=== PATIENT | female | born 1950 | race Caucasian/White ===

== ENCOUNTER 2017-10-08 10:43 | Inpatient (IN) | payer MEDICARE ==
[2017-10-08] VITALS (8 sets, daily range): BP systolic 98–114; BP diastolic 34–65
[~2017-10-08] VITALS: Ht 152.4 cm; Wt 71.3 kg
[2017-10-08] MEDS ORDERED: normal saline 1000ML IV soln IVB ONE ×2 (11:15)
[2017-10-08] MEDS ORDERED: ondansetron/PF 4mg/2ml inj IV ONE (11:15)
[2017-10-08] MEDS ORDERED: morphine 2 MG/ML inj. syringe IV ONE (11:15)
[2017-10-08] MEDS: morphine 5 MG/ML injection IV PRN ×3 (11:25→19:50)
[2017-10-08] MEDS ORDERED: iohexol 300mg/ml 100ml inj. ONE (11:30)
[2017-10-08 11:37] LABS: BASOPHILS % (AUTO) 0.4 % (0-1); EOSINOPHILS # (AUTO) 0.1 X10'3 (0-0.9); EOSINOPHILS % (AUTO) 1.8 % (0-6); HEMATOCRIT 38.1 % (35.0-45.0); HEMOGLOBIN 12.8 g/dl (12.0-16.0); LYMPHOCYTES # (AUTO) 1.2 X10'3 (1.1-4.8); LYMPHOCYTES % (AUTO) 20.7 % (21-51); MEAN CORPUSCULAR HEMOGLOBIN 31.8 PG (27.0-31.0); MEAN CORPUSCULAR HGB CONC 33.6 % (33.0-36.5); MEAN CORPUSCULAR VOLUME 94.7 FL (78-98); MEAN PLATELET VOLUME 6.5 FL (7.4-10.4); MONOCYTES # (AUTO) 0.3 X10'3 (0-0.9); MONOCYTES % (AUTO) 5.6 % (2-12); NEUTROPHILS # (AUTO) 4.3 X10'3 (1.8-7.7); NEUTROPHILS % (AUTO) 71.5 % (42-75); PLATELET COUNT 256 X10'3 (140-440); RED BLOOD COUNT 4.03 X10'6 (4.20-5.60); RED CELL DISTRIBUTION WIDTH 14.2 % (11.5-14.5)
[2017-10-08 11:45] LABS: PARTIAL THROMBOPLASTIN TIME 22 SECONDS (22-32); PROTHROMBIN TIME 10.5 SECONDS (9.0-12.0)
[2017-10-08] MEDS ORDERED: morphine 5 MG/ML injection IV ONE ×2 (11:55→13:25)
[2017-10-08 11:56] LABS: ALANINE AMINOTRANSFERASE 81 U/L (12-78); ALBUMIN 3.7 G/DL (3.4-5.0); ALKALINE PHOSPHATASE 58 IU/L (46-116); ANION GAP 6 (8-16); ASPARTATE AMINO TRANSFERASE 99 U/L (10-37); BILIRUBIN,TOTAL 0.4 MG/DL (0.1-1.0); BLOOD UREA NITROGEN 21 MG/DL (7-18); BUN/CREATININE RATIO 26.6 (6.6-38.0); CALCIUM 8.9 MG/DL (8.5-10.1); CHLORIDE 106 MMOL/L (99-107); CREATINE KINASE 159 U/L (26-192); CREATININE 0.79 MG/DL (0.40-0.90); GLUCOSE 136 MG/DL (70-104); POTASSIUM 4.1 MMOL/L (3.5-5.1); SODIUM 141 MMOL/L (135-145); TOTAL CARBON DIOXIDE 28.8 MMOL/L (24-32); TOTAL PROTEIN 7.4 G/DL (6.4-8.2); eGFR 72 ML/MIN
[2017-10-08 13:19] LABS: CLARITY,URINE SLIGHTLY CLOUDY (Clear); COLOR,URINE YELLOW (Yellow); GLUCOSE, URINE NEGATIVE (Neg); KETONES,URINE NEGATIVE (Neg); LEUKOCYTE ESTERASE ,URINE NEGATIVE (Neg); NITRITES, URINE NEGATIVE (Neg); OCCULT BLOOD,URINE MODERATE (Neg); PH,URINE 5.5 (4.8-8.0); PROTEIN,URINE NEGATIVE (Neg); UROBILINOGEN,URINE 0.2 E.U/dL (0.2-1.0)
[2017-10-08 13:32] LABS: UA COLLECTION TYPE STRAIGHT CATH
[2017-10-08 13:39] LABS: BACTERIA,URINE NONE SEEN /HPF (Neg); MUCUS STRANDS FEW /LPF (Neg); SQUAMOUS EPITHELIAL CELL,UR FEW /LPF (FEW); WBC,URINE 0-4 /HPF (0-4)
[2017-10-08 13:40] LABS: TRANSITIONAL EPI CELLS,URINE FEW /HPF
[2017-10-08] MEDS ORDERED: midazolam 2 mg/2 ml injection ONE (14:58)
[2017-10-08] MEDS ORDERED: fentaNYL/PF 50MCG/1 ML 2ML syringe ONE (14:58)
[2017-10-08] MEDS ORDERED: HYDROmorphone 1 mg/ml syringe IV PRN ×2 (15:20)
[2017-10-08] MEDS ORDERED: acetaminophen 325mg tablet PO PRN (15:20)
[2017-10-08] MEDS ORDERED: magnesium 2GM in 50ml NS 50 ML IV PRN (15:20)
[2017-10-08] MEDS ORDERED: potassium Cl 40MEQ/NS 500ml 500 ML IV PRN ×2 (15:20)
[2017-10-08] MEDS ORDERED: magnesium hydroxide 30ml (MOM) UD suspension PO PRN (15:20)
[2017-10-08] MEDS ORDERED: magnesium 4gm in 100ml NS 100 ML IV PRN (15:20)
[2017-10-08] MEDS ORDERED: potassium Cl 20 mEq SR tablet PO PRN ×2 (15:20)
[2017-10-08] MEDS ORDERED: magnesium Cl slow-release 64mg tablet PO PRN (15:20)
[2017-10-08] MEDS ORDERED: LIDOcaine 1%/PF (10mg/ml) 5ml vial SQ ONE (16:30)
[2017-10-08] MEDS ORDERED: fentaNYL/PF 50MCG/1 ML 2ML syringe IV PRN (16:30)
[2017-10-08] MEDS ORDERED: HYDROmorphone inj. 0.5 MG/0.5 ML DISP.SYRIN IV PRN ×2 (18:18)
[2017-10-08] MEDS ORDERED: NO HOME MEDS (18:21)
[2017-10-08] MEDS: normal saline 1000ml 1,000 ML IV SCH (19:55)
[2017-10-08] MEDS ORDERED: temazepam 15mg capsule PO PRN (21:00)
[2017-10-09] MEDS: normal saline 1000ml 1,000 ML IV SCH ×3 (04:39→20:05)
[2017-10-09] MEDS: HYDROcodone/acetaminophen 5mg/325mg tablet PO PRN (05:34)
[2017-10-09 06:00] VITALS: BP 127/49
[2017-10-09 06:01] LABS: BASOPHILS % (AUTO) 0.3 % (0-1); EOSINOPHILS % (AUTO) 0.6 % (0-6); HEMATOCRIT 34.7 % (35.0-45.0); HEMOGLOBIN 11.8 g/dl (12.0-16.0); LYMPHOCYTES % (AUTO) 15.2 % (21-51); MEAN CORPUSCULAR HEMOGLOBIN 32.3 PG (27.0-31.0); MEAN CORPUSCULAR HGB CONC 33.9 % (33.0-36.5); MEAN CORPUSCULAR VOLUME 95.2 FL (78-98); MEAN PLATELET VOLUME 6.3 FL (7.4-10.4); MONOCYTES # (AUTO) 0.7 X10'3 (0-0.9); MONOCYTES % (AUTO) 10.3 % (2-12); NEUTROPHILS # (AUTO) 4.9 X10'3 (1.8-7.7); NEUTROPHILS % (AUTO) 73.6 % (42-75); PLATELET COUNT 230 X10'3 (140-440); RED BLOOD COUNT 3.64 X10'6 (4.20-5.60); RED CELL DISTRIBUTION WIDTH 14.4 % (11.5-14.5); WHITE BLOOD COUNT 6.7 X10'3 (4.5-11.0)
[2017-10-09 06:15] LABS: ALBUMIN 3.2 G/DL (3.4-5.0); ANION GAP 6 (8-16); BLOOD UREA NITROGEN 16 MG/DL (7-18); BUN/CREATININE RATIO 17.8 (6.6-38.0); CALCIUM 8.4 MG/DL (8.5-10.1); CHLORIDE 105 MMOL/L (99-107); GLUCOSE 121 MG/DL (70-104); POTASSIUM 4.5 MMOL/L (3.5-5.1); SODIUM 140 MMOL/L (135-145); TOTAL CARBON DIOXIDE 29.4 MMOL/L (24-32); eGFR 62 ML/MIN
[2017-10-09] MEDS: K and/or MAG REPLACEMENT MC SCH (07:30)
[2017-10-09] MEDS: mag hydrox/Alum hydrox/simeth 30ml oral suspension PO PRN (09:05)
[2017-10-09 10:00] VITALS: BP 100/47
[2017-10-09] MEDS: HYDROcodone/acetaminophen 10/325mg tab PO PRN ×2 (12:03→16:42)
[2017-10-09] MEDS: morphine 5 MG/ML injection IV PRN (14:50)
[2017-10-09 19:00] VITALS: BP 125/53
[2017-10-09] MEDS ORDERED: morphine 4 MG/ML inj SYRINge IV PRN (19:45)
[2017-10-09 22:00] VITALS: BP 108/47
[2017-10-10] MEDS: HYDROcodone/acetaminophen 10/325mg tab PO PRN ×6 (00:21→23:41)
[2017-10-10 05:49] LABS: BASOPHILS % (AUTO) 0.4 % (0-1); EOSINOPHILS # (AUTO) 0.1 X10'3 (0-0.9); EOSINOPHILS % (AUTO) 2.7 % (0-6); HEMATOCRIT 30.6 % (35.0-45.0); HEMOGLOBIN 10.5 g/dl (12.0-16.0); LYMPHOCYTES # (AUTO) 1.2 X10'3 (1.1-4.8); LYMPHOCYTES % (AUTO) 25.1 % (21-51); MEAN CORPUSCULAR HEMOGLOBIN 32.3 PG (27.0-31.0); MEAN CORPUSCULAR HGB CONC 34.2 % (33.0-36.5); MEAN CORPUSCULAR VOLUME 94.4 FL (78-98); MEAN PLATELET VOLUME 6.5 FL (7.4-10.4); MONOCYTES # (AUTO) 0.6 X10'3 (0-0.9); MONOCYTES % (AUTO) 11.9 % (2-12); NEUTROPHILS % (AUTO) 59.9 % (42-75); PLATELET COUNT 203 X10'3 (140-440); RED BLOOD COUNT 3.24 X10'6 (4.20-5.60); RED CELL DISTRIBUTION WIDTH 14.6 % (11.5-14.5)
[2017-10-10 06:00] VITALS: BP 125/54
[2017-10-10 06:09] LABS: ALBUMIN 2.9 G/DL (3.4-5.0); ANION GAP 5 (8-16); BLOOD UREA NITROGEN 11 MG/DL (7-18); BUN/CREATININE RATIO 16.9 (6.6-38.0); CALCIUM 8.2 MG/DL (8.5-10.1); CHLORIDE 109 MMOL/L (99-107); CREATININE 0.65 MG/DL (0.40-0.90); GLUCOSE 108 MG/DL (70-104); MAGNESIUM 2.1 MG/DL (1.5-2.4); SODIUM 143 MMOL/L (135-145); TOTAL CARBON DIOXIDE 28.8 MMOL/L (24-32); eGFR > 90 ML/MIN
[2017-10-10] MEDS: K and/or MAG REPLACEMENT MC SCH (08:00)
[2017-10-10] MEDS: ondansetron/PF 4mg/2ml inj IV PRN ×2 (08:23→19:40)
[2017-10-10 10:00] VITALS: BP 125/53
[2017-10-10] MEDS: normal saline 1000ml 1,000 ML IV SCH ×2 (10:44→19:50)
[2017-10-10] MEDS ORDERED: bisacodyl 10mg suppository rectal RC PRN (16:25)
[2017-10-10 18:20] VITALS: BP 137/72
[2017-10-10 22:00] VITALS: BP 125/55
[2017-10-11] MEDS: HYDROcodone/acetaminophen 10/325mg tab PO PRN ×4 (03:58→15:50)
[2017-10-11 05:00] VITALS: BP 122/56
[2017-10-11 05:46] LABS: BASOPHILS % (AUTO) 0.2 % (0-1); EOSINOPHILS # (AUTO) 0.1 X10'3 (0-0.9); EOSINOPHILS % (AUTO) 1.2 % (0-6); HEMATOCRIT 32.4 % (35.0-45.0); HEMOGLOBIN 10.9 g/dl (12.0-16.0); LYMPHOCYTES # (AUTO) 1.1 X10'3 (1.1-4.8); LYMPHOCYTES % (AUTO) 14.5 % (21-51); MEAN CORPUSCULAR HEMOGLOBIN 32.4 PG (27.0-31.0); MEAN CORPUSCULAR HGB CONC 33.7 % (33.0-36.5); MEAN CORPUSCULAR VOLUME 96.3 FL (78-98); MEAN PLATELET VOLUME 6.8 FL (7.4-10.4); MONOCYTES # (AUTO) 0.7 X10'3 (0-0.9); MONOCYTES % (AUTO) 9.1 % (2-12); NEUTROPHILS # (AUTO) 5.6 X10'3 (1.8-7.7); PLATELET COUNT 220 X10'3 (140-440); RED BLOOD COUNT 3.36 X10'6 (4.20-5.60); RED CELL DISTRIBUTION WIDTH 14.3 % (11.5-14.5); WHITE BLOOD COUNT 7.5 X10'3 (4.5-11.0)
[2017-10-11 06:16] LABS: ALBUMIN 3.1 G/DL (3.4-5.0); ANION GAP 8 (8-16); BLOOD UREA NITROGEN 10 MG/DL (7-18); BUN/CREATININE RATIO 13.7 (6.6-38.0); CALCIUM 7.8 MG/DL (8.5-10.1); CHLORIDE 107 MMOL/L (99-107); CREATININE 0.73 MG/DL (0.40-0.90); GLUCOSE 107 MG/DL (70-104); POTASSIUM 3.6 MMOL/L (3.5-5.1); SODIUM 143 MMOL/L (135-145); TOTAL CARBON DIOXIDE 28.1 MMOL/L (24-32); eGFR 79 ML/MIN
[2017-10-11] MEDS: K and/or MAG REPLACEMENT MC SCH (08:00)
[2017-10-11 10:00] VITALS: BP 120/55
[2017-10-11] MEDS: mag hydrox/Alum hydrox/simeth 30ml oral suspension PO PRN (12:02)
[2017-10-11] MEDS: HYDROcodone/acetaminophen 5mg/325mg tablet PO PRN (20:14)
[2017-10-11 22:00] VITALS: BP 107/50
[2017-10-11] MEDS: normal saline 1000ml 1,000 ML IV SCH (23:19)
[2017-10-12] MEDS: HYDROcodone/acetaminophen 10/325mg tab PO PRN ×4 (02:56→15:07)
[2017-10-12 05:00] VITALS: BP 108/40
[2017-10-12 06:01] LABS: BASOPHILS % (AUTO) 0.4 % (0-1); EOSINOPHILS # (AUTO) 0.1 X10'3 (0-0.9); EOSINOPHILS % (AUTO) 2.4 % (0-6); HEMATOCRIT 30.4 % (35.0-45.0); HEMOGLOBIN 10.2 g/dl (12.0-16.0); LYMPHOCYTES # (AUTO) 1.4 X10'3 (1.1-4.8); LYMPHOCYTES % (AUTO) 26.6 % (21-51); MEAN CORPUSCULAR HGB CONC 33.5 % (33.0-36.5); MEAN CORPUSCULAR VOLUME 95.4 FL (78-98); MEAN PLATELET VOLUME 6.4 FL (7.4-10.4); MONOCYTES # (AUTO) 0.6 X10'3 (0-0.9); MONOCYTES % (AUTO) 12.6 % (2-12); PLATELET COUNT 228 X10'3 (140-440); RED BLOOD COUNT 3.18 X10'6 (4.20-5.60); RED CELL DISTRIBUTION WIDTH 14.2 % (11.5-14.5); WHITE BLOOD COUNT 5.1 X10'3 (4.5-11.0)
[2017-10-12 06:20] LABS: ALBUMIN 2.7 G/DL (3.4-5.0); ANION GAP 8 (8-16); BLOOD UREA NITROGEN 11 MG/DL (7-18); BUN/CREATININE RATIO 16.7 (6.6-38.0); CALCIUM 8.4 MG/DL (8.5-10.1); CHLORIDE 107 MMOL/L (99-107); CREATININE 0.66 MG/DL (0.40-0.90); GLUCOSE 101 MG/DL (70-104); MAGNESIUM 2.1 MG/DL (1.5-2.4); POTASSIUM 3.5 MMOL/L (3.5-5.1); SODIUM 144 MMOL/L (135-145); TOTAL CARBON DIOXIDE 29.3 MMOL/L (24-32); eGFR 89 ML/MIN
[2017-10-12] MEDS: K and/or MAG REPLACEMENT MC SCH (07:15)
[2017-10-12 10:00] VITALS: BP 122/36
[2017-10-12] MEDS: normal saline 1000ml 1,000 ML IV SCH (12:39)
[2017-10-12 18:00] VITALS: BP 105/48
[2017-10-12] MEDS ORDERED: MAGN400O6 PO (18:17)
[2017-10-12] MEDS: HYDROcodone/acetaminophen 5mg/325mg tablet PO PRN (18:39)
== END 2017-10-12 19:00 | disposition home or self-care (01) | DRG 200 ==
LOC: ER 10:43 → ED HOLD 15:19 → ORTHO 4S 17:35
PROVIDERS: ADMIT Internal Medicine; ATTEND Emergency Medicine
PROC: 0W9930Z Drainage of Right Pleural Cavity with Drainage Device, Percutaneous Approach (ICD-10-PCS; principal; 2017-10-08)
PROC: BW251ZZ Computerized Tomography (CT Scan) of Chest, Abdomen and Pelvis using Low Osmolar Contrast (ICD-10-PCS; 2017-10-08)
DX: S27.0XXA Traumatic pneumothorax, initial encounter (principal); S22.41XA Multiple fractures of ribs, right side, initial encounter for closed fracture; M41.9 Scoliosis, unspecified; M46.02 Spinal enthesopathy, cervical region; E86.0 Dehydration; T79.7XXA Traumatic subcutaneous emphysema, initial encounter; K59.00 Constipation, unspecified; W11.XXXA Fall on and from ladder, initial encounter; Z88.6 Allergy status to analgesic agent; Y93.89 Activity, other specified; Y92.89 Other specified places as the place of occurrence of the external cause; Y99.8 Other external cause status
CPT/HCPCS: 32557; 36415; 71045; 71260; 72125; 74177; 80048; 80053; 81001; 82550; 83735; 83874; 85025; 85610; 85730; 87070; 96374; 96375; 96376; 97110; 97116; 99152; 99153; 99285; A6223; A6257; A6258; A6402; C1729; C1769; J2250; J2270; J2405; J3010; J7030; Q9967